=== PATIENT | male | born 1950 | race African-American/Black ===

== ENCOUNTER 2021-12-25 19:26 | Inpatient (IN) | payer OTHER, MEDICARE ==
[~2021-12-25] VITALS: Ht 162.6 cm; Wt 74.6 kg
[2021-12-25] MEDS ORDERED: MORPHINE SULFATE 4 MG/ML CPJ (NOT FOR IM USE) IV STA (20:37)
[2021-12-25] MEDS ORDERED: ONDANSETRON HCL 4MG/2ML INJ IV STA (20:37)
[2021-12-25] MEDS ORDERED: NITROGLYCERIN OINT 1GM/INCH UDPKT TD ONE (20:45)
[2021-12-25] MEDS: ASPIRIN 81MG TABLET PO ONE ×2 (22:07→23:00)
[2021-12-25] MEDS ORDERED: IPRATROPIUM/ALBUTEROL 0.5-3(2.5)MG/3ML NEB HHN PRN (22:15)
[2021-12-25] MEDS ORDERED: ONDANSETRON HCL 4MG/2ML INJ IV PRN (22:15)
[2021-12-25] MEDS ORDERED: DOCUSATE SODIUM 100MG CAPSULE PO PRN (22:15)
[2021-12-25] MEDS ORDERED: GUAIFENESIN 200MG/10ML SUGAR FREE UDC PO PRN (22:15)
[2021-12-25] MEDS ORDERED: ACETAMINOPHEN 650MG/20.3ML UDC GT PRN (22:15)
[2021-12-25] MEDS ORDERED: CLONIDINE 0.1MG TABLET PO PRN (22:15)
[2021-12-25 22:17] LABS: EOSINOPHILS % 6.4 % (0.0-5.0); HEMATOCRIT. 34.7 % (42.0-52.0); HEMOGLOBIN. 11.5 g/dL (14.0-18.0); LYMPHOCYTES % 21.2 % (20.0-50.0); MEAN CORPUSCULAR HEMOGLOBIN 29.9 pg (28.0-32.0); MEAN PLATELET VOLUME 8.3 fl (7.4-10.4); MONOCYTES % 10.5 % (2.0-8.0); NEUTROPHILS % 60.9 % (40.0-76.0); PLATELET 305 x1000/uL (130-400); RED BLOOD CELL COUNT 3.85 mill/uL (4.7-6.1); RED CELL DISTRIBUTION WIDTH 16.9 % (11.6-14.6)
[2021-12-25 22:18] LABS: CHLORIDE 106 mEq/L (98-107)
[2021-12-26] MEDS ORDERED: SODIUM POLYSTYRENE SULFONATE 15 G/60 ML BOT PO NR (00:45)
[2021-12-26] MEDS ORDERED: LORAZEPAM 2MG/ML CPJ IV PRN (01:00)
[2021-12-26] MEDS ORDERED: HYDRALAZINE 20MG/ML VIAL IV PRN (01:00)
[2021-12-26 10:38] VITALS: BP 158/82
[2021-12-26 10:52] LABS: BASOPHILS % 0.7 % (0.0-2.0); EOSINOPHILS % 5.5 % (0.0-5.0); HEMATOCRIT. 35.6 % (42.0-52.0); HEMOGLOBIN. 11.9 g/dL (14.0-18.0); LYMPHOCYTES % 18.5 % (20.0-50.0); MEAN CORPUSCULAR HEMOGLOBIN 29.7 pg (28.0-32.0); MEAN CORPUSCULAR VOLUME 88.6 fL (80.0-94.0); MEAN PLATELET VOLUME 8.5 fl (7.4-10.4); MONOCYTES % 11.8 % (2.0-8.0); NEUTROPHILS % 63.5 % (40.0-76.0); PLATELET 296 x1000/uL (130-400); RED BLOOD CELL COUNT 4.02 mill/uL (4.7-6.1); RED CELL DISTRIBUTION WIDTH 16.6 % (11.6-14.6)
[2021-12-26 10:55] LABS: CHLORIDE 106 mEq/L (98-107)
[2021-12-26 11:02] LABS: LDL CHOLESTEROL 102 mg/dL (5-100)
[2021-12-26 11:03] LABS: HDL CHOLESTEROL 37 mg/dL (40-59)
[2021-12-26 12:00] VITALS: BP 154/78
[2021-12-26] MEDS ORDERED: AMLO10TA80 MT (12:05)
[2021-12-26] MEDS ORDERED: METO-411 MT (12:06)
[2021-12-26] MEDS ORDERED: ASPI-1497 MT (12:07)
[2021-12-26] MEDS ORDERED: EZET10TA13 MT (12:07)
[2021-12-26] MEDS ORDERED: LISI20TA31 MT (12:07)
[2021-12-26 16:00] VITALS: BP 142/68
[2021-12-26] MEDS: ASPIRIN 81MG EC TABLET PO SCH (17:08)
[2021-12-26] MEDS: METOPROLOL TARTRATE 25MG TABLET PO SCH (17:08)
[2021-12-26] MEDS: RISPERIDONE 0.25MG TABLET PO SCH (17:12)
[2021-12-26 20:00] VITALS: BP 140/78
[2021-12-26] MEDS: ATORVASTATIN CALCIUM 40MG TABLET PO SCH (21:21)
[2021-12-27] VITALS: BP 132/70
[2021-12-27 03:59] VITALS: BP 140/64
[2021-12-27] MEDS: METOPROLOL TARTRATE 25MG TABLET PO SCH ×2 (06:28→17:29)
[2021-12-27 08:00] VITALS: BP 129/86
[2021-12-27] MEDS: RISPERIDONE 0.25MG TABLET PO SCH (09:36)
[2021-12-27] MEDS: ASPIRIN 81MG EC TABLET PO SCH (09:36)
[2021-12-27 12:00] VITALS: BP 121/72
[2021-12-27] MEDS ORDERED: APIX5TAB MT (14:17)
[2021-12-27 16:00] VITALS: BP 138/64
[2021-12-27 17:04] LABS: BASOPHILS % 0.9 % (0.0-2.0); EOSINOPHILS % 5.6 % (0.0-5.0); HEMATOCRIT. 34.9 % (42.0-52.0); HEMOGLOBIN. 11.7 g/dL (14.0-18.0); LYMPHOCYTES % 18.7 % (20.0-50.0); MEAN CORPUSCULAR HEMOGLOBIN 30.2 pg (28.0-32.0); MEAN CORPUSCULAR VOLUME 89.6 fL (80.0-94.0); NEUTROPHILS % 62.8 % (40.0-76.0); PLATELET 311 x1000/uL (130-400); RED BLOOD CELL COUNT 3.89 mill/uL (4.7-6.1)
[2021-12-27 17:08] LABS: CHLORIDE 104 mEq/L (98-107)
[2021-12-27 20:00] VITALS: BP 117/87
[2021-12-27] MEDS: ATORVASTATIN CALCIUM 40MG TABLET PO SCH (22:57)
[2021-12-28] VITALS: BP 133/80
[2021-12-28] MEDS: METOPROLOL TARTRATE 25MG TABLET PO SCH ×2 (05:10→18:27)
[2021-12-28 08:00] VITALS: BP 122/73
[2021-12-28] MEDS: ASPIRIN 81MG EC TABLET PO SCH (09:23)
[2021-12-28] MEDS ORDERED: AMLO5TAB88 MT (10:12)
[2021-12-28] MEDS ORDERED: METO25TA6 PO ×2 (10:12)
[2021-12-28 12:00] VITALS: BP 113/81
[2021-12-28 14:56] VITALS: BP 114/68
[2021-12-28 16:00] VITALS: BP 114/68
[2021-12-28] MEDS: RISPERIDONE 0.25MG TABLET PO SCH ×2 (20:42→21:00)
[2021-12-28] MEDS: ATORVASTATIN CALCIUM 40MG TABLET PO SCH (20:42)
[2021-12-30] MEDS ORDERED: METO25TA6 PO (16:50)
[2021-12-30] MEDS ORDERED: APIX5TAB MT (16:50)
== END 2021-12-28 21:10 | disposition home health service (06) | DRG 205 ==
LOC: ER 19:26 → MICUSO 22:00 → 8WST 12-26 08:40
PROVIDERS: ADMIT Internal Medicine; ATTEND Internal Medicine
DX: M94.0 Chondrocostal junction syndrome [Tietze] (principal); G93.41 Metabolic encephalopathy; E87.1 Hypo-osmolality and hyponatremia; E78.5 Hyperlipidemia, unspecified; E87.5 Hyperkalemia; F03.90 Unspecified dementia, unspecified severity, without behavioral disturbance, psychotic disturbance, mood disturbance, and anxiety; I10 Essential (primary) hypertension; D64.9 Anemia, unspecified; J44.9 Chronic obstructive pulmonary disease, unspecified; Z20.822 Contact with and (suspected) exposure to COVID-19; Z79.82 Long term (current) use of aspirin; Z82.49 Family history of ischemic heart disease and other diseases of the circulatory system; Z86.73 Personal history of transient ischemic attack (TIA), and cerebral infarction without residual deficits; Z87.891 Personal history of nicotine dependence
CPT/HCPCS: 36415; 71045; 80048; 80053; 80061; 83880; 84443; 84484; 85025; 87426; 93005; 93306; 97166; 97535; 99291; C1893; J2060; J2270; J2405